=== PATIENT | female | born 1990 | race Caucasian/White ===

== ENCOUNTER 2020-03-18 21:57 | Emergency (ER) | payer OTHER ==
[~2020-03-18] VITALS: Ht 167.6 cm; Wt 81.7 kg
[~2020-03-18 21:57] MED LIST: ACETAMINOPHEN-1 EAC1 PO; CELEXA 20 MG TA20 M1; CIPROFLOXACIN500 M1 PO; CYMBALTA30 MG PO; DEXTROAMPHETAMIN5 M2; ESKALITH300 MG PO; FLEXERIL; FOCALIN XR20 MG; HYDROXYZINE HCL25 M1 PO; LINZESS145 MCG; MELOXICAM7.5 MG; MOBIC; NOHOMEMEDICATIONS; NORCO 5-325 TA1 EACH PO; NORFLEX100 MG PO; PREDNISONE 10 M10 M1 PO; PRILOSEC 10MG C10 MG; PROMETHAZINE12.5 M4 RE; ROBAXIN500 MG PO; ROZEREM 8 MG TAB8 MG; TRILEPTAL 300300 MG PO; VYVANSE50 MG; WELLBUTRIN 100100 MG NG; WELLBUTRIN XL150 M1; XANAX; XANAX 0.25 MG0.25 MG PO; ZANTAC 150MG T150 M1; ZOLOFT100 MG PO; ZYPREXA2.5 MG PO
[2020-03-18] MEDS ORDERED: PROTONIX40 M1 PO (22:11)
[2020-03-18] MEDS ORDERED: PROZAC 10 MG CA10 MG PO (22:12)
[2020-03-18] MEDS ORDERED: SEROQUEL 100 M100 MG PO (22:12)
[2020-03-18] MEDS ORDERED: LINZESS145 MCG PO (22:12)
[2020-03-18] MEDS ORDERED: BUPROPION XL300 MG PO (22:12)
[2020-03-18] MEDS ORDERED: BUPROPION HCL150 M1 PO (22:13)
[2020-03-18] MEDS ORDERED: NAPROSYN500 MG PO (22:13)
[2020-03-18] MEDS ORDERED: TYLENOL EXTRA500 MG PO (22:13)
[2020-03-18] MEDS ORDERED: KLONOPIN0.5 MG PO (22:13)
[2020-03-18 23:04] LABS: URINE BILIRUBIN NEGATIVE (Negative); URINE BLOOD NEGATIVE (Negative); URINE CLARITY CLEAR; URINE COLOR YELLOW; URINE GLUCOSE-RANDOM NEGATIVE (Negative); URINE KETONES NEGATIVE (Negative); URINE LEUKOCYTES-REFLEX NEGATIVE (Negative); URINE NITRITE-REFLEX NEGATIVE (Negative); URINE PROTEIN NEGATIVE (Negative); URINE UROBILINOGEN 0.2 E.U./dl (0.2-1.0)
[2020-03-18 23:24] LABS: HEMATOCRIT 35.3 % (37.0-47.0); HEMOGLOBIN 12.4 gm/dL (12.0-15.0); MCH 31.3 pg (26.0-34.0); MCHC 35.1 g/dL (28.0-37.0); MCV 89.2 fL (80.0-100.0); MPV 8.8 fl. (7.2-11.1); NUCLEATED RBCS 0 /100WBC; PLATELET COUNT* 272 thou/uL (150-400); RBC 3.96 mil/uL (4.20-5.00); RDW-CV 12.7 % (10.5-14.5); WBC 19.1 thou/uL (4.0-11.0)
[2020-03-18 23:28] LABS: CALCIUM 8.5 mg/dL (8.5-10.1); CREATININE 0.8 mg/dL (0.6-1.3); POTASSIUM 3.3 mmol/L (3.5-5.1)
[2020-03-18 23:32] LABS: ALBUMIN 4.2 g/dL (3.4-5.0); TOTAL BILIRUBIN 0.6 mg/dL (<0.1-1.0); TOTAL PROTEIN 6.7 g/dL (6.4-8.2)
[2020-03-19 00:27] LABS: AMP/METHAMP Negative (Negative); BARBITURATES Negative (Negative); BENZODIAZEPINES Negative (Negative); COCAINE Negative (Negative); METHADONE Negative (Negative); OPIATES Negative (Negative); PCP Negative (Negative); THC Negative (Negative)
[2020-03-19 01:10] LABS: ABSOLUTE BASOPHILS 0.2 thou/uL (0.0-0.2); ABSOLUTE EOSINOPHILS 0.6 thou/uL (0.0-0.7); ABSOLUTE LYMPHOCYTES 2.5 thou/uL (0.8-5.3); ABSOLUTE NEUTROPHILS 14.9 thou/uL (1.6-8.1); PLATELET ESTIMATE ADEQUATE; TOXIC GRANULATION 1+
[2020-03-19 01:12] LABS: ANISOCYTOSIS Occasional
[2020-03-19 03:55] VITALS: BP 119/69
== END 2020-03-19 03:55 | disposition short-term general hospital (02) ==
LOC: M.ERS 21:57
PROVIDERS: Emergency Medicine
DX: R10.13 Epigastric pain (principal); R10.11 Right upper quadrant pain; R19.7 Diarrhea, unspecified; Z20.828 Contact with and (suspected) exposure to other viral communicable diseases; F17.210 Nicotine dependence, cigarettes, uncomplicated; Z90.89 Acquired absence of other organs; Z79.899 Other long term (current) drug therapy